=== PATIENT | female | born 1960 | race Caucasian/White ===

== ENCOUNTER → 2016-10-08 | Day surgery (SDC) | payer BC ==
[~2016-10-08] MED LIST: CO Q-1010 MG PO; FLEXERIL10 MG PO; GLUCOSAMIN-CHO1 EACH PO; HARD NAILS2500 MCG PO; HYDROCODONE/APA1 T15 PO; IBUPROFEN800 MG PO; LIBRIUM25 M1 PO; NATURAL VITA400 UNI2 PO; PRAVASTATIN SOD40 MG PO; TOPROL XL50 MG PO; VOLTAREN75 MG PO; [UNRECOGNIZED DRUG - CODE] PO
--- NOTE | ~2016-10-08 | OR ---
Unit #: [id number] #: [id number] Patient: ANA LOVETT [id number] [address] [address] [id number] MR#: [id number] NAME: ANA LOVETT ROOM: Date of Procedure: 10/08/2016 Admission Date: 10/08/2016 Surgeon: Keith Mccormick M.D. : 1960 Attending Physician: Keith Mccormick M.D. Primary Care Physician: Larry Monique M.D. OPERATIVE REPORT PREOPERATIVE DIAGNOSIS Right knee medial meniscal tear. POSTOPERATIVE DIAGNOSIS Right knee medial meniscal tear. PROCEDURE PERFORMED Right knee arthroscopic partial medial meniscectomy, [address]. TRASH MAN None. ANESTHESIA General with LMA. COMPLICATIONS None. SPECIMENS None. DRAINS None. SURGICAL IMPLANTS None. INDICATION FOR PROCEDURE Ms. Lovett is a 56-year-old female, who had been seen in our office due to persistent medial-sided right knee pain. The patient failed to respond to conservative treatment including antiinflammatories and cortisone injection. MRI was performed confirming complete radial tear of the medial meniscus with corresponding bone edema. The patient had pain over this area. After discussion with the patient, she wished to proceed with elective knee arthroscopy with possible partial meniscectomy versus repair. Risks, benefits, and alternatives of surgery were discussed with the patient. Informed consent was obtained. Risks include, but not limited to, infection, bleeding, nerve injury, blood clots, risks associated with anesthesia, and possibly . DESCRIPTION OF PROCEDURE On 10/08/2016, the patient was seen in preoperative holding area, where Unit #: [id number] #: [id number] Patient: ANA LOVETT her surgical site was marked. Preoperative antibiotics were received. H and P and consent updated. The patient was taken to the operating room and provided general anesthesia. Right leg was placed in arthroscopic leg mathias with a tourniquet. It was prepped and draped in typical sterile fashion. Time-out performed confirming the correct surgical site and procedure. Esmarch was used to exsanguinate the leg and tourniquet inflated to 250 mmHg. Standard anterolateral portal created with 11-blade. The anteromedial portal created with an 18-gauge needle for guidance followed by 11-blade. Full inventory of the knee was performed. Very mild changes to the patellofemoral joint noted. No significant instability or appreciable maltracking noted. Medial compartment was evaluated. Full-thickness radial tear noted of the medial body. The edges of the anterior and posterior portions of the meniscus at the radial tear were fibrotic. No healthy bleeding base noted. It was felt meniscectomy was more appropriate to smooth out the edges of the meniscus then repaired. I did not feel that repairing the meniscus back together with sufficiently hold. The medial compartment had predominantly grade 2 changes to the articular cartilage. Limited chondroplasty performed with a shaver. The ACL and PCL were normal. Lateral compartment had some very mild changes with some focal grade 2 changes of the lateral femoral condyle. Focus was placed back on the medial meniscus. The arthroscopic shaver and biters were used to smooth the edge of the leading edges of the meniscus. Stable base noted. The tear site was debrided with a shaver creating a healthy bleeding response. Once this was complete, final images were taken. All instruments were removed from the knee. A partial meniscectomy had been complete. 3-0 nylon suture was used to close 2 portal wounds. Approximately 10 mL of Marcaine 0.5% without epinephrine injected into the knee. The tourniquet was released and hemostasis noted. Xeroform, 4x4s, ABD pad, cast padding, and Tyree bandage were placed. The patient was subsequently awakened from general anesthesia in stable condition and taken to the PACU postoperatively. POSTOPERATIVE PLAN The patient will be weightbearing as tolerated. She will be discharged home. She will follow up my office in 10 to 14 days. She will take a baby aspirin for DVT prophylaxis. No complications were encountered during the surgical procedure. Dictated by... Keith Mccormick M.D. MCKAYLA/joellen TD: 10/08/2016 21:30 JOB #: [id number] OPERATIVE REPORT X X PROCEDURE OPERATIVE NOTE
== END | disposition home or self-care (01) ==
LOC: CSUR 09:21
DX: S83.241A Other tear of medial meniscus, current injury, right knee, initial encounter (principal); M17.11 Unilateral primary osteoarthritis, right knee; I10 Essential (primary) hypertension; Z90.710 Acquired absence of both cervix and uterus
CPT/HCPCS: J0690; J1170; J1885; J2250; J2405; J3010